=== PATIENT | male | born 1995 | race Caucasian/White ===

== ENCOUNTER → 2023-04-28 | Outpatient (CLI) | payer OTHER ==
[~2023-04-28] MED LIST: ALEVE; CODACEE120 PO; HYDR1TAB94 PO; K-Dur20 MEQ PO; OMEP20ER PO; SERT50 PO
== END ==
LOC: LAB SHORT 12:30 → LAB 12:30
DX: T81.30XA Disruption of wound, unspecified, initial encounter (principal)
CPT/HCPCS: 87070; 87075; 87205

== ENCOUNTER 2023-10-17 11:10 | Day surgery (SDC) | payer OTHER ==
[~2023-10-17] VITALS: Ht 170.2 cm; Wt 94.0 kg
[~2023-10-17 11:10] MED LIST changes: +Lactated Ringer's 1,000 ML IV ONE; +propofoL 50 ML IV ONE
[2023-10-17] MEDS ORDERED: OMEP20ER (11:20)
[2023-10-17] MEDS ORDERED: PREG75 (11:21)
[2023-10-17] MEDS ORDERED: Lactated Ringer's 1,000 ML IV ONE (12:02)
[2023-10-17 13:08] VITALS: BP 106/73
--- NOTE | 2023-10-17 13:12 | NUR ---
10/17/23 1312 Ruth Ann Sage CASE STARTED BY JESSICA ALFONSO. THIS RN GAVE A TOTAL OF 160 MG OF PROPOFOL, LAST DOSE BY THIS RN WAS AT 1222. GAVE REPORT AND TRANSFERRED CARE TO JESSICA WHITLEY AT 1223. DURING PROCEDURE PATIENT WAS ON 3 LPM OXYGEN AND VITALS WERE STABLE.
== END 2023-10-17 13:00 | disposition home or self-care (01) ==
LOC: ORSCSDS 11:10
PROVIDERS: Specialist
PROC: 0DB58ZX Excision of Esophagus, Via Natural or Artificial Opening Endoscopic, Diagnostic (ICD-10-PCS; principal; 2023-10-17 12:30)
PROC: 0DB98ZX Excision of Duodenum, Via Natural or Artificial Opening Endoscopic, Diagnostic (ICD-10-PCS; principal; 2023-10-17 12:30)
PROC: 0DB68ZX Excision of Stomach, Via Natural or Artificial Opening Endoscopic, Diagnostic (ICD-10-PCS; principal; 2023-10-17 12:30)
DX: K21.9 Gastro-esophageal reflux disease without esophagitis (principal); R11.2 Nausea with vomiting, unspecified; R10.9 Unspecified abdominal pain; F17.210 Nicotine dependence, cigarettes, uncomplicated; Z79.899 Other long term (current) drug therapy
CPT/HCPCS: 88305; 88342; J2704; J7120

== ENCOUNTER 2024-05-20 22:04 | Emergency (ER) | payer OTHER ==
[~2024-05-20] VITALS: Ht 170.2 cm; Wt 99.8 kg
[~2024-05-20 22:04] MED LIST changes: -Lactated Ringer's 1,000 ML IV ONE; +OMEP20ER; +PREG75; -propofoL 50 ML IV ONE
[2024-05-20 22:35] LABS: BASOPHILS ABSOLUTE AUTO 0.08 K/mm3 (0.00-0.23); BASOPHILS PERCENT AUTO 1 % (0-2); EOSINOPHILS PERCENT AUTO 1 % (0-6); Hematocrit 45.1 % (37.0-53.0); Hemoglobin 15.7 g/dL (13.5-17.5); IMMATURE GRAN ABSOLUTE AUTO 0.04 K/mm3 (0.00-0.10); IMMATURE GRAN PERCENT AUTO 0 % (0-1); LYMPHOCYTES ABSOLUTE AUTO 3.18 K/mm3 (0.84-5.20); LYMPHOCYTES PERCENT AUTO 24 % (21-46); MONOCYTES ABSOLUTE AUTO 0.83 K/mm3 (0.16-1.47); MONOCYTES PERCENT AUTO 6 % (4-13); Mean Corpuscular HGB 30.7 pg (26.0-34.0); Mean Corpuscular HGB Conc 34.8 g/dL (31.5-36.5); Mean Corpuscular Volume 88 fL (80-100); Mean Platelet Volume 10.9 fL (9.1-12.4); NEUTROPHILS ABSOLUTE AUTO 9.16 K/mm3 (1.96-9.15); NEUTROPHILS PERCENT AUTO 69 % (41-73); Platelet Count 282 K/mm3 (150-400); RDW Coefficient Variation 11.9 % (11.7-14.2); RDW Standard Deviation 38.4 fL (35.1-46.3); Red Blood Cell Count 5.12 M/mm3 (4.30-5.90); White Blood Cell Count 13.39 K/mm3 (4.00-11.30)
[2024-05-20 22:55] LABS: Albumin, Blood 3.8 g/dL (3.4-5.0); Bilirubin, Total 0.2 mg/dL (0.1-1.0); Bun/Creatinine Ratio 10.4 (12.0-20.0); Creatinine, Blood 0.77 mg/dL (0.60-1.20); Globulin, Blood 3.8 g/dL (2.2-4.0); Potassium, Blood 3.9 mmol/L (3.5-5.5); Total Protein, Blood 7.6 g/dL (6.4-8.2)
[2024-05-21] MEDS ORDERED: Ondansetron HCl 2 MG / ML 2ML Vial IV ONE (02:40)
[2024-05-21] MEDS ORDERED: NS 1,000 ML IV SCH (02:40)
[2024-05-21] MEDS ORDERED: ONDA4ODT MM (02:41)
[2024-05-21 02:58] VITALS: BP 120/83
== END 2024-05-21 03:31 | disposition home or self-care (01) ==
LOC: ER 22:04
PROVIDERS: Emergency Medicine
DX: R11.2 Nausea with vomiting, unspecified (principal); E86.0 Dehydration; D72.829 Elevated white blood cell count, unspecified; F17.200 Nicotine dependence, unspecified, uncomplicated; Z91.010 Allergy to peanuts; Z79.899 Other long term (current) drug therapy
CPT/HCPCS: 80053; 85025; 96374; 99284; J2405; J7030